=== PATIENT | female | born 1940 | race Caucasian/White ===

== ENCOUNTER 2016-10-09 20:24 | Inpatient (IN) | payer OTHER ==
[~2016-10-09] VITALS: Ht 165.1 cm; Wt 68.0 kg
[2016-10-09 23:17] LABS: UA SPECIFIC GRAVITY 1.025 (1.005-1.035); microscopic required? YES; urine erythrocyte NEGATIVE (NEGATIVE)
[2016-10-09 23:33] LABS: CALCIUM 9.7 mg/dL (8.5-10.1); CARBON DIOXIDE 24.9 mmol/L (21-32); CHLORIDE SERUM 108 mmol/L (98-107); CREATININE SERUM 1.4 mg/dL (0.6-1.0); GLUCOSE SERUM 133 mg/dL (74-106); POTASSIUM SERUM 3.4 mmol/L (3.5-5.1); SODIUM SERUM 142 mmol/L (136-145)
[2016-10-09 23:35] LABS: BASOPHIL % 0.3 % (0-2); PLATELET COUNT 209 x10^3mcL (130-400); RED CELL DISTRIBUTION WIDTH 13.9 % (11.5-14.5)
[2016-10-09 23:38] LABS: ALBUMIN 3.8 g/dL (3.4-5.0); ALKALINE PHOSPHATASE 84 U/L (46-116); ALT/SGPT 17 U/L (14-59); AST/SGOT 28 U/L (15-37); BILIRUBIN TOTAL 0.4 mg/dL (0.20-1.00); LIPASE 261 IU/L (73-393); TOTAL PROTEIN, SERUM 7.2 g/dL (6.4-8.2)
[2016-10-09 23:44] LABS: AMYLASE 189 U/L (25-115)
[2016-10-10] MEDS ORDERED: ALENDRONATE SOD70 M3 PO (01:27)
[2016-10-10] MEDS ORDERED: ARICEPT10 MG PO (01:28)
[2016-10-10] MEDS ORDERED: LEVOTHYROXINE0.05 M2 PO (01:29)
[2016-10-10] MEDS ORDERED: LISINOPRIL10 MG PO (01:29)
[2016-10-10] MEDS ORDERED: LORAZEPAM0.5 MG PO (01:30)
[2016-10-10] MEDS ORDERED: MECLIZINE HYD12.5 MG PO (01:31)
[2016-10-10] MEDS ORDERED: NITROFURANTOIN50 MG PO (01:31)
[2016-10-10] MEDS ORDERED: DITROPAN XL10 MG PO (01:32)
[2016-10-10] MEDS ORDERED: PAROXETINE20 M1 PO (01:32)
[2016-10-10] MEDS ORDERED: GOOD SENSE OMEP20 MG PO (01:32)
[2016-10-10] MEDS ORDERED: MIRAPEX0.25 MG PO (01:33)
[2016-10-10] MEDS ORDERED: VITD PO (01:38)
[2016-10-10] MEDS ORDERED: SIMVASTATIN40 M1 PO (01:38)
[2016-10-10] MEDS ORDERED: TRAMADOL HCL50 MG PO (01:38)
[2016-10-10 02:35] VITALS: BP 122/73
[2016-10-10 02:40] LABS: MAGNESIUM 1.9 mg/dL (1.8-2.4); PHOSPHOROUS 4.7 mg/dL (2.5-4.9)
[2016-10-10 02:41] LABS: CHOLESTEROL/HDL RATIO 2.4
[2016-10-10 02:57] LABS: FREE T4 1.53 ng/dL (0.76-1.46); FREE THYROXINE INDEX 4.6 ug/dL (1.4-4.5); T4(THYROXINE) 12.2 ug/dL (4.7-13.3)
[2016-10-10 02:59] LABS: T3 TOTAL 1.09 ng/mL
[2016-10-10 06:23] VITALS: BP 111/52
[2016-10-10 06:34] LABS: BASOPHIL % 0.1 % (0-2); PLATELET COUNT 192 x10^3mcL (130-400); RED CELL DISTRIBUTION WIDTH 14.1 % (11.5-14.5)
[2016-10-10 06:44] LABS: CALCIUM 8.6 mg/dL (8.5-10.1); CARBON DIOXIDE 26.7 mmol/L (21-32); CHLORIDE SERUM 113 mmol/L (98-107); CREATININE SERUM 1.2 mg/dL (0.6-1.0); GLUCOSE SERUM 103 mg/dL (74-106); POTASSIUM SERUM 4.4 mmol/L (3.5-5.1); SODIUM SERUM 145 mmol/L (136-145)
[2016-10-10 09:20] VITALS: BP 131/61
[2016-10-10 12:31] VITALS: BP 96/42
[2016-10-10 16:35] VITALS: BP 112/53
[2016-10-10 21:11] VITALS: BP 155/70
[2016-10-11 05:26] VITALS: BP 132/56
[2016-10-11 06:11] LABS: CALCIUM 8.5 mg/dL (8.5-10.1); CARBON DIOXIDE 24.4 mmol/L (21-32); CHLORIDE SERUM 115 mmol/L (98-107); GLUCOSE SERUM 89 mg/dL (74-106); POTASSIUM SERUM 4.1 mmol/L (3.5-5.1); SODIUM SERUM 144 mmol/L (136-145)
[2016-10-11 06:12] LABS: BASOPHIL % 0.3 % (0-2); PLATELET COUNT 157 x10^3mcL (130-400); RED CELL DISTRIBUTION WIDTH 13.8 % (11.5-14.5)
[2016-10-11 10:15] VITALS: BP 107/84
[2016-10-11 13:51] VITALS: BP 134/63
[2016-10-11 16:58] VITALS: BP 134/58
[2016-10-11 22:05] VITALS: BP 121/53
[2016-10-12 06:06] LABS: BASOPHIL % 0.4 % (0-2); PLATELET COUNT 150 x10^3mcL (130-400)
[2016-10-12 06:16] LABS: CALCIUM 8.9 mg/dL (8.5-10.1); CARBON DIOXIDE 26.1 mmol/L (21-32); CHLORIDE SERUM 113 mmol/L (98-107); CREATININE SERUM 0.9 mg/dL (0.6-1.0); GLUCOSE SERUM 84 mg/dL (74-106); POTASSIUM SERUM 4.2 mmol/L (3.5-5.1); SODIUM SERUM 146 mmol/L (136-145)
[2016-10-12 06:22] VITALS: BP 103/84
[2016-10-12 06:37] VITALS: BP 103/84
[2016-10-12 08:30] VITALS: BP 125/68
[2016-10-12 09:56] VITALS: BP 125/68
[2016-10-12] MEDS ORDERED: BAY PO (10:05)
[2016-10-12] MEDS ORDERED: CLOPIDOGREL75 M1 PO (10:05)
== END 2016-10-12 11:38 | disposition home or self-care (01) | DRG 393 ==
LOC: ED 20:24 → DU 10-10 01:22
PROVIDERS: Emergency Medicine; Family Medicine; Internal Medicine Gastroenterology; ADMIT Family Medicine
PROC: 0DBN8ZX Excision of Sigmoid Colon, Via Natural or Artificial Opening Endoscopic, Diagnostic (ICD-10-PCS; principal; 2016-10-11 08:00)
DX: K55.1 Chronic vascular disorders of intestine (principal); N17.0 Acute kidney failure with tubular necrosis; N39.0 Urinary tract infection, site not specified; K57.30 Diverticulosis of large intestine without perforation or abscess without bleeding; E86.0 Dehydration; E87.6 Hypokalemia; K44.9 Diaphragmatic hernia without obstruction or gangrene; E03.9 Hypothyroidism, unspecified; M81.0 Age-related osteoporosis without current pathological fracture; F41.8 Other specified anxiety disorders; E87.8 Other disorders of electrolyte and fluid balance, not elsewhere classified; Z68.25 Body mass index [BMI] 25.0-25.9, adult
CPT/HCPCS: 45378; 83880; 84439; J1200; J1610; J1885; J1956; J2250; J2270; J2310; J2405; J2765; J3010; J3490; J7030